=== PATIENT | male | born 1945 | race Caucasian/White ===

== ENCOUNTER → 2018-01-15 08:27 | Outpatient (CLI) | payer MEDICARE ==
[2015-08-06 08:30] VITALS: BMI 26.5
[~2018-01-15 08:27] MED LIST: GLUCOPHAGE500 MG PO; LUMIGAN 0.01%2.5 ML EACH EYE; PEPCID20 MG PO
== END | disposition home or self-care (01) ==
LOC: D.CT 08:27
DX: R10.9 Unspecified abdominal pain (principal)